=== PATIENT | female | born 1935 | race Caucasian/White ===

== ENCOUNTER 2019-02-12 15:08 | Emergency (ER) | payer OTHER ==
[~2019-02-12] VITALS: Ht 172.7 cm; Wt 83.9 kg
[2019-02-12 15:14] VITALS: Ht 172.7 cm; Wt 83.9 kg
[2019-02-12 16:37] LABS: BASOPHIL % 0.2 % (0-2); PLATELET COUNT 191 x10^3mcL (130-400)
[2019-02-12 16:38] LABS: RED CELL DISTRIBUTION WIDTH 15.1 % (11.5-14.5)
[2019-02-12 16:46] LABS: CALCIUM 9.9 mg/dL (8.5-10.1); CARBON DIOXIDE 24.3 mmol/L (21-32); CHLORIDE SERUM 103 mmol/L (98-107); CREATININE SERUM 1.3 mg/dL (0.6-1.0); GLUCOSE SERUM 107 mg/dL (74-106); POTASSIUM SERUM 3.9 mmol/L (3.5-5.1); SODIUM SERUM 136 mmol/L (136-145)
[2019-02-12 16:52] LABS: ALBUMIN 3.4 g/dL (3.4-5.0); ALKALINE PHOSPHATASE 55 U/L (46-116); ALT/SGPT 15 U/L (14-59); AST/SGOT 10 U/L (15-37); BILIRUBIN TOTAL 0.55 mg/dL (0.20-1.00); TOTAL PROTEIN, SERUM 7.1 g/dL (6.4-8.2)
[2019-02-12 17:34] LABS: microscopic required? YES; urine erythrocyte TRACE (NEGATIVE)
[2019-02-12 18:57] VITALS: BP 134/75
== END 2019-02-12 18:50 | disposition home or self-care (01) ==
LOC: ED 15:08
PROVIDERS: Emergency Medicine
DX: N39.0 Urinary tract infection, site not specified (principal); R53.1 Weakness; N28.9 Disorder of kidney and ureter, unspecified
CPT/HCPCS: J0696; J2765; J7030